=== PATIENT | female | born 1975 | race Asian ===

== ENCOUNTER 2019-06-06 23:16 | Emergency (ER) | payer OTHER ==
[~2019-06-06] VITALS: Ht 170.2 cm; Wt 63.2 kg
[~2019-06-06 23:16] MED LIST: ONDA4TAB14 PO
[2019-06-06 23:20] VITALS: BP 130/77; PULSE 73; RESP 16; Ht 170.2 cm; Wt 63.2 kg
[2019-06-06] MEDS ORDERED: ONDANSETRON (ODT) 4 MG TAB ODT STA (23:47)
[2019-06-07] MEDS ORDERED: IBUPROFEN 800 MG TAB PO ONE
== END 2019-06-07 02:01 | disposition home or self-care (01) ==
LOC: FTE 23:16
DX: R11.10 Vomiting, unspecified (principal)
CPT/HCPCS: 80053; 81001; 81025; 82550; 85025; 99283